=== PATIENT | female | born 1950 | race Caucasian/White ===

== ENCOUNTER → 2017-03-09 | Outpatient (CLI) | payer MEDICARE ==
[~2017-03-09] MED LIST: ASPI-110 PO; ASPI1TAB69 PO; CALC1TAB87 PO; CALTTAB5 PO; LEVO75TA3 PO; MULTTAB67 PO; OMEG100046 PO; PNEU0.5I IM
[2017-03-09 11:11] LABS: AUTOMATED NEUTROPHIL # 2.3 TH/MM3 (1.8-7.7); BASOPHIL # 0.1 TH/MM3 (0-0.2); BASOPHIL % 1.9 % (0.0-2.0); EOSINOPHIL # 0.2 TH/MM3 (0-0.4); EOSINOPHIL % 3.5 % (0.0-4.0); HEMATOCRIT 41.6 % (35.0-46.0); HEMO FLAGS DIFF FINAL; LYMPH % 41.1 % (9.0-44.0); LYMPHOCYTE # 2.2 TH/MM3 (1.0-4.8); MEAN CELL VOLUME 95.4 FL (80.0-100.0); MEAN CORPUSCULAR HEMOGLOBIN 32.9 PG (27.0-34.0); MEAN CORPUSCULAR HGB CONC 34.5 % (32.0-36.0); MONO % 11.1 % (0.0-8.0); NEUT % 42.4 % (16.0-70.0); PLATELET COUNT 231 TH/MM3 (150-450); RED BLOOD COUNT 4.36 MIL/MM3 (4.00-5.30); RED CELL DISTRIBUTION WIDTH 12.7 % (11.6-17.2); WHITE BLOOD COUNT 5.4 TH/MM3 (4.0-11.0)
[2017-03-09 11:15] LABS: BLOOD, URINE NEG (NEG); GLUCOSE,URINE NEG (NEG); KETONE, URINE NEG (NEG); NITRITE,URINE NEG (NEG); SQUAMOUS EPITHELIAL CELL URINE <1 /hpf (0-5); URINE COLOR YELLOW (YELLW/STRAW)
[2017-03-09 11:32] LABS: BICARBONATE 29.1 MEQ/L (21.0-32.0); POTASSIUM 4.5 MEQ/L (3.5-5.1)
--- NOTE | 2017-03-09 14:19 | EKG ---
Date Performed: 03/09/2017 Time Performed: 10:16:25 PTAGE: 66 years EKG: SINUS BRADYCARDIA LOW QRS VOLTAGE IN EXTREMITY LEADS BORDERLINE ECG NO PREVIOUS TRACING DOCTOR: Rommel Dela Cruz Interpretating Date/Time 03/09/2017 14:13:41
== END ==
LOC: CPRE 09:52
PROVIDERS: ATTEND Obstetrics & Gynecology
DX: Z01.810 Encounter for preprocedural cardiovascular examination (principal); Z01.812 Encounter for preprocedural laboratory examination; N87.9 Dysplasia of cervix uteri, unspecified; R94.31 Abnormal electrocardiogram [ECG] [EKG]
CPT/HCPCS: 36415; 80048; 81001; 85025; 86850; 86900; 86901; 93005

== ENCOUNTER 2017-03-11 05:35 | Observation (INO) | payer MEDICARE ==
--- NOTE | 2017-03-09 17:47 | MH ---
cc: LIAM GORDON DATE OF ADMISSION 03/11/2017 DATE OF 1950 INDICATIONS FOR PROCEDURE Persistent high-grade squamous intraepithelial lesion. SCHEDULED PROCEDURE Laparoscopic-assisted vaginal hysterectomy and bilateral salpingo-oophorectomy. HISTORY OF THE PRESENT ILLNESS The patient is a very pleasant 66-year-old white female para 5 with LMP approximately 18 years ago who has been in the menopause for a number of years. She has had no postmenopausal bleeding. She has had no significant symptoms of menopause. She has used EVC, estrogen vaginal cream to address her vaginal atrophy and otherwise has had no symptoms. Abnormal Pap smear resulted in colposcopy and colposcopic directed biopsy indicated high-grade squamous intraepithelial lesion. This was reviewed with Danita and her and the decision was made to proceed with an [facility]. Her general health is excellent. She has mild hypothyroidism and takes Synthroid 75 mcg daily. She has had a history of MRSA of the large vaginal cyst that we addressed in the distant past and she started taking on her own mucopercin several days before the scheduled surgery. She uses estrogen cream intermittently. PAST SURGICAL HISTORY She has no other prior surgeries other than colonoscopy. FAMILY HISTORY Significant for heart disease and stroke. SOCIAL HISTORY She drinks moderate alcohol, occasional caffeine. Exercises to a moderate degree. She is under a great stress at this time because her young son was recently diagnosed with ALS. PHYSICAL EXAMINATION GENERAL: On physical she is a slim white female. VITAL SIGNS: 154. Blood pressure today 120/70. ALLERGIES: She has an allergy to Biaxin and intolerance to codeine. NECK: She has no thyromegaly. LUNGS: Clear. HEART: Rate and rhythm are regular. BREASTS: Without dominant mass. ABDOMEN: Benign. Her abdomen does show her one section scar. PELVIC: She has had four children naturally and one by section. Perineum is well-estrogenized. The vault is elevated. Cervix is multiparous and somewhat scarred from a history of incompetent cervix. The uterus is small, mobile, nontender. There is a moderate degree descent. Ovaries are not palpable. GASTROINTESTINAL/GENITOURINARY: Guaiac was negative. She has no significant cystocele or rectocele and on history denies any significant stress urinary incontinence. IMPRESSION High grade lesion on colposcopic directed biopsy in a 66-year-old, desirous of definitive therapy. Risks, benefits, expectations including the risk of damage to bowel, bladder, blood vessels, complications of medication and anesthesia up to and including have all been described and reviewed with Danita and her . They feel that the potential benefit exceeds risks and they desired to proceed and she is scheduled for and has signed consents. MD MEETA Coe/BINDU /5:17 PM /5:25 PM MTDThomas
[~2017-03-11] VITALS: Ht 162.6 cm; Wt 76.4 kg
[~2017-03-11 05:35] MED LIST changes: -ASPI1TAB69 PO; -CALTTAB5 PO
[2017-03-11] MEDS ORDERED: CHLORHEXIDINE GLUCONATE 2 % 1 PACK (2 CLOTHS) TOPICAL PRN (06:00)
[2017-03-11] MEDS ORDERED: SODIUM CHLORID 0.9% 500 ML IV PRN (06:00)
[2017-03-11] MEDS ORDERED: INSULIN HUMAN REGULAR 1,000 UNITS/10 ML VIAL SQ PRN (06:00)
[2017-03-11] MEDS ORDERED: ceFAZolin 2 GM PREMIX 50 ML IV SCH (06:00)
[2017-03-11] MEDS ORDERED: METOPROLOL TARTRATE 25 MG TAB PO PRN (06:00)
[2017-03-11] MEDS ORDERED: LACTATED RINGER'S 1000 ML IV PRN (06:00)
[2017-03-11] MEDS ORDERED: POVIDONE IODINE 5% (ANTISEPSIS KIT) 4 APPLICATIONS EACH NARE PRN (06:00)
[2017-03-11] MEDS ORDERED: BUPIVACAINE/EPINEPHRINE 0.5% 50 ML VIAL ONE (06:09)
[2017-03-11] MEDS ORDERED: SODIUM CHLORIDE 0.9% 20 ML VIAL ONE (06:09)
[2017-03-11] MEDS ORDERED: ESTROGENS CONJUGATED VAG CREA 15 APPL/30 GM TUBE ONE (06:10)
[2017-03-11] MEDS ORDERED: VASOPRESSIN 20 UNITS/ML VIAL (IVTITR) ONE (06:10)
[2017-03-11] MEDS ORDERED: MIDAZOLAM HCL 2 MG/2 ML VIAL ONE (07:09)
[2017-03-11] MEDS ORDERED: ACETAMINOPHEN 1000 MG/100 ML 100 ML IV ONE (07:09)
[2017-03-11] MEDS ORDERED: FAMOTIDINE 20 MG/2 ML VIAL ONE (07:10)
[2017-03-11] MEDS ORDERED: DEXAMETHASONE SOD PHOS 4 MG/ML VIAL ONE (07:10)
[2017-03-11] MEDS ORDERED: METHYLENE BLUE 10 MG/ML VIAL IV ONE (09:35)
--- NOTE | 2017-03-11 10:06 | PD.OP ---
Operative Report Date of Surgery: Mar 11, 2017 Preoperative Diagnosis: CHAYO 3 on colposcopic directed biopsy Postoperative Diagnosis: same, Procedure: LAVHBSO enterocele repair cystoscopy Surgeon: Siobhan Feliciano [employer] Assistant(s): OR staff Operation and Findings: Siobhan Hanley MD Mar 11, 2017 10:06
[2017-03-11] MEDS ORDERED: oxyCODONE/ACETAMINOPHEN 5 MG/325 MG TAB PO PRN (10:15)
[2017-03-11] MEDS ORDERED: SODIUM CHLORIDE 0.9% FLUSH 10 ML FLUSH IV FLUSH PRN (10:15)
[2017-03-11] MEDS ORDERED: PROMETHAZINE HCL 25 MG TAB PO PRN (10:15)
[2017-03-11] MEDS ORDERED: ZOLPIDEM TARTRATE 5 MG TAB PO PRN (10:15)
[2017-03-11] MEDS ORDERED: IBUPROFEN 600 MG TAB PO PRN (10:15)
[2017-03-11] MEDS ORDERED: LORazepam 0.5 MG TAB PO PRN (10:15)
[2017-03-11] MEDS ORDERED: ONDANSETRON HCL 4 MG/2 ML VIAL IVP PRN (10:15)
[2017-03-11] MEDS ORDERED: diphenhydrAMINE HCL 25 MG CAP PO PRN (10:15)
[2017-03-11] MEDS ORDERED: DO NOT ADM ANY ANTICOAGULANT DRUGS PRN (10:45)
[2017-03-11] MEDS ORDERED: *MEPERIDINE 25 MG INJ VIAL PERIprocedural Use ONLY ONE (10:51)
[2017-03-11] MEDS ORDERED: PILL SPLITTER OTHER PRN (11:00)
[2017-03-11] MEDS: LACTATED RINGER'S 1000 ML INJ 1,000 ML IV SCH ×3 (11:04→20:29)
--- NOTE | 2017-03-11 12:49 | MP ---
cc: SIOBHAN GORDON DATE OF SURGERY: 03/11/2017 PREOPERATIVE DIAGNOSIS CHAYO III of the cervix on colposcopic directed biopsy. POSTOPERATIVE DIAGNOSIS CHAYO III of the cervix on colposcopic directed biopsy. PROCEDURE Laparoscopically assisted vaginal hysterectomy with bilateral salpingo-oophorectomy, enterocele obliteration and cystoscopy performance. ANESTHESIA General endotracheal. SURGEON Dr. Gordon. [employer] Operative staff. FINDINGS Examination under anesthesia revealed a multiparous cervix that was fairly scarred due to her multiple cerclages. Upon entering the intraabdominal cavity, the liver appeared to be somewhat fibrotic, did not visualize easily the gallbladder. The uterus was small, mobile. Ovaries appeared to be postmenopausal. The pelvis showed no evidence of infection, significant adhesions despite her previous or cancer. The laparoscopic portion of the case was uneventful and the vaginal portion also uneventful. It was difficult to determine where the posterior cervix started and where the posterior vaginal sulcus ended due to her multiple procedures and she did have a significant enterocele, but this was addressed. Cystoscopy did show good flow from both ureteral orifices. There was no evidence of any other intrinsic pathology or iatrogenic injury. ESTIMATED BLOOD LOSS Estimated blood loss was about 150 ccs. COUNTS Sponge, instrument, needle count were correct. CONDITION She tolerated the procedure well. PROCEDURE The patient was identified as Danita Sanders, her permit was reviewed with her in the preop. She was taken to the operating room, prepped and draped in the usual sterile fashion in the lithotomy position. She was given 1 gram of Ancef preoperatively. A time-out was performed and then examination under anesthesia was performed and then the Ambrose catheter was placed and a single-tooth tenaculum placed on the cervix and acorn tenaculum placed for manipulation. Attention was directed to the abdomen. A 5 mm incision was infiltrated with Marcaine and the 5 mm trocar and sleeve placed in the peritoneal cavity and the umbilicus with direct visualization. Confirmation of normal placement was performed and then a pneumoperitoneum was created and then a right lower quadrant and left lower quadrant incision was made and transilluminated to avoid any branches of the inferior epigastric. Two trocar sleeves were placed on either side and then using laparoscopic instruments the abdominal and pelvic contents were systematically evaluated. Then the right round ligament was grasped and transected with the harmonic scalpel and the anterior leaf of the broad ligament taken off the lower uterine segment and the infundibulopelvic ligament was placed on gentle medial traction by grasping the tube and placing traction medially and then the harmonic scalpel was used to transect the infundibulopelvic ligament and create successive pedicles to meet the round ligament and then this was taken down to the level of the uterosacral. This was repeated on the opposite side without difficulty and then the instrumentation was left in place and the venue was changed to the perineum. The acorn tenaculum was removed. A single-tooth tenaculum was used to place traction on the cervix. It was infiltrated with Marcaine and a Bovie was used to circumcise the cervix on cutting. The posterior and anterior cul-de-sacs were entered sharply and then curved Elfego clamp was used on either uterosacral to clamp, cut and tie. A second and last pedicle was created on either side and the uterus was removed. The peritoneum was carefully evaluated and a pursestring was placed to close the peritoneum and obliterate the enterocele. Then the uterosacrals were plicated, then the vaginal vault was closed in a vertical fashion with a running interlocking suture of Vicryl. There was no bleeding. Attention was directed to the abdomen and pneumoperitoneum was reinstated and then systematic evaluation was performed. There is a small amount of blood in the peritoneal cavity, this was washed away. The bowel was evaluated carefully. There was mild oozing on the right side that appeared to be just raw peritoneal surface, there was no actual blood vessels. This area was treated with Clarke and then the pneumoperitoneum was released under direct visualization. The incisions were closed with simple suture. Attention was directed to the perineum again and then the Ambrose was used to fill the bladder with 200 ccs of clear saline and removed. Then the scope was placed into the bladder and there was no evidence of iatrogenic injury and no intrinsic pathology and there was good flow from both ureteral orifices. This was removed and the Ambrose was replaced. She was placed in dorsal supine position, awoken and taken to the recovery room in stable condition. Siobhan Gordon MD PPC/TLL /10:07 AM /12:28 PM
[2017-03-11] MEDS ORDERED: *morphine SULFATE 8 MG/ML PERIprocedure ONLY ONE (13:37)
[2017-03-11] MEDS ORDERED: ONDANSETRON HCL 4 MG/2 ML VIAL IV PUSH ONE (14:54)
[2017-03-11] MEDS ORDERED: GLYCOPYRROLATE 1 MG/5 ML SYRINGE IV PUSH ONE (14:54)
[2017-03-11] MEDS ORDERED: NEOSTIGMINE 3 MG/3 ML SYR IV ONE (14:54)
[2017-03-11] MEDS ORDERED: NORMOSOL R INJ 1,000 ML IV ONE (14:54)
[2017-03-11] MEDS ORDERED: LIDOCAINE HCL 1% PF 5 ML AMPULE OTHER ONE (14:54)
[2017-03-11] MEDS ORDERED: ROCURONIUM INJ 50 MG/5 ML SYRINGE IV PUSH ONE (14:54)
[2017-03-11 16:00] VITALS: BP 117/60; PULSE 75; RESP 16; TEMP 96.2; O2SAT 97
[2017-03-11] MEDS: oxyCODONE/ACETAMINOPHEN 5 MG/325 MG TAB PO PRN ×2 (16:07→20:22)
--- NOTE | 2017-03-11 17:55 | HHI.PR ---
Subjective Remarks Doing well, pain is well controlled, eating well. has been walking the halls Objective Vital Signs Vital Signs Date Time Temp Pulse Resp B/P (MAP) Pulse Ox O2 Delivery O2 Flow Rate FiO2 03/11/17 16:00 96.2 75 16 117/60 (79) 97 03/11/17 15:00 98.4 64 17 99/58 (72) 98 Room Air 03/11/17 14:00 98.4 03/11/17 14:00 70 14 97/54 (68) 97 Room Air 03/11/17 13:00 65 17 96/54 (68) 99 Room Air 03/11/17 12:00 67 19 100/57 (71) 98 Room Air 03/11/17 11:45 96.7 03/11/17 11:30 97.9 66 20 98/54 (69) 96 Room Air 03/11/17 11:15 64 15 98/55 (69) 98 Room Air 03/11/17 11:03 96.7 03/11/17 11:00 60 15 104/55 (71) 94 Room Air 03/11/17 10:45 66 20 96/51 (66) 99 Room Air 03/11/17 10:30 58 12 98/55 (69) 99 Room Air 03/11/17 10:15 65 14 92/54 (67) 100 Room Air 03/11/17 10:08 96.8 76 18 98/54 (69) 99 Nasal Cannula 2 03/11/17 09:31 68 112/67 03/11/17 06:29 97.7 59 20 117/72 (87) 100 I/O 03/10/17 03/10/17 03/10/17 03/11/17 03/11/17 03/11/17 07:00 15:00 23:00 07:00 15:00 23:00 Intake Total 1775 ml Output Total 2050 ml Balance -275 ml Intake Oral 225 ml IV Total 1550 ml Output Urine Total 850 ml Estimated Blood Loss 200 ml Other 1000 ml Objective Remarks Chest is clear, regular rate and rhythm. Abdomen is soft and non-distended. Incisions clean and dry. Ext no CCE. perineum dry urine clear A/P Assessment and Plan Post Op Day 0 Doing well Home today and return to office inone week instructions given Siobhan Feliciano MD Mar 11, 2017 17:55
--- NOTE | 2017-03-11 17:57 | HHI.DCPOC ---
Discharge Care Plan Report Symptoms to Your Doctor -Temperature above 100.5 degrees -Redness, of incision or excessive or foul smelling drainage -Unusual pain or calf pain -Increased vaginal bleeding -Painful or difficulty urinating -Feelings of extreme sadness or anxiety after 2 weeks Goals to Promote Your Health * To prevent worsening of your condition and complications * To maintain your health at the optimal level Directions to Meet Your Goals Take your medications as prescribed Follow your dietary instruction Follow activity as directed Ensure plenty of rest for recovery Drink fluids for hydration Keep your appointments as scheduled Take your immunizations and boosters as scheduled If your symptoms worsen call your PCP, if no PCP go to Urgent Care Center or Emergency Room Smoking is Dangerous to Your Health. Avoid second hand smoke Call the 24-hour crisis hotline for domestic abuse at Siobhan Feliciano MD Mar 11, 2017 17:57
[2017-03-11] MEDS: SODIUM CHLORIDE 0.9% FLUSH 10 ML FLUSH IV FLUSH SCH (20:28)
[2017-03-11 20:38] VITALS: BP 104/57; PULSE 61; RESP 16; TEMP 97.8; O2SAT 95
[2017-03-12] VITALS: BP 110/55; PULSE 63; RESP 18; TEMP 96.8; O2SAT 96
[2017-03-12 04:00] VITALS: BP 103/55; PULSE 62; RESP 18; TEMP 97.9; O2SAT 96
[2017-03-12] MEDS: oxyCODONE/ACETAMINOPHEN 5 MG/325 MG TAB PO PRN (04:07)
[2017-03-12 07:19] LABS: AUTOMATED NEUTROPHIL # 4.6 TH/MM3 (1.8-7.7); BASOPHIL % 0.6 % (0.0-2.0); EOSINOPHIL # 0.1 TH/MM3 (0-0.4); HEMATOCRIT 34.9 % (35.0-46.0); HEMO FLAGS DIFF FINAL; LYMPH % 28.2 % (9.0-44.0); LYMPHOCYTE # 2.1 TH/MM3 (1.0-4.8); MEAN CELL VOLUME 96.3 FL (80.0-100.0); MEAN CORPUSCULAR HEMOGLOBIN 32.1 PG (27.0-34.0); MEAN CORPUSCULAR HGB CONC 33.3 % (32.0-36.0); MONO % 8.5 % (0.0-8.0); NEUT % 61.7 % (16.0-70.0); PLATELET COUNT 192 TH/MM3 (150-450); RED BLOOD COUNT 3.62 MIL/MM3 (4.00-5.30); RED CELL DISTRIBUTION WIDTH 12.6 % (11.6-17.2); WHITE BLOOD COUNT 7.4 TH/MM3 (4.0-11.0)
[2017-03-12 07:47] LABS: BICARBONATE 27.9 MEQ/L (21.0-32.0)
[2017-03-12 08:00] VITALS: BP 96/52; PULSE 69; RESP 16; TEMP 96.9; O2SAT 97
[2017-03-12] MEDS: SODIUM CHLORIDE 0.9% FLUSH 10 ML FLUSH IV FLUSH SCH (08:10)
[2017-03-12] MEDS ORDERED: INFLUENZA VIRUS VACCINE (QUADRIVALENT) 0.5 ML SYR IM ONE (10:00)
[2017-03-12] MEDS ORDERED: PNEUMOCOCCAL POLYVALENT INJ 25 MCG/0.5 ML SYR IM ONE (10:00)
== END 2017-03-12 09:29 | disposition home or self-care (01) ==
LOC: HSDC 05:35 → HSDI 10:04 → N07B 15:22
PROVIDERS: ADMIT Obstetrics & Gynecology; ATTEND Obstetrics & Gynecology
DX: D06.9 Carcinoma in situ of cervix, unspecified (principal); N81.5 Vaginal enterocele; N80.0 Endometriosis of uterus; N95.2 Postmenopausal atrophic vaginitis; E03.9 Hypothyroidism, unspecified; Z78.0 Asymptomatic menopausal state
CPT/HCPCS: 00840; 52000; 57268; 58552; 80048; 85025; 88309; G0378; J0131; J0690; J1100; J2175; J2250; J2270; J2405; J2710; J3010; J7120; 88307